=== PATIENT | female | born 1965 | race Caucasian/White ===

== ENCOUNTER 2025-04-07 08:17 | Outpatient (CLI) | payer BC, SELFPAY ==
--- NOTE | 2025-04-07 09:44 | P.ANES_ITS ---
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
--- NOTE | 2025-04-07 09:44 | W.ANESCHARGE ---
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
--- NOTE | 2025-04-07 09:50 | P.ANES_ITS ---
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
--- NOTE | 2025-04-07 09:50 | W.ANESCHARGE ---
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
== END 2025-04-07 08:18 | disposition home or self-care (01) ==
PROVIDERS: Visit Provider Internal Medicine Gastroenterology
DX: Z12.11 Encounter for screening for malignant neoplasm of colon (principal); D12.3 Benign neoplasm of transverse colon; D12.4 Benign neoplasm of descending colon; K57.30 Diverticulosis of large intestine without perforation or abscess without bleeding
CPT/HCPCS: 00811; 00812; 45380; 45385; 88305; J2704